=== PATIENT | female | born 1985 | race Caucasian/White ===

== ENCOUNTER 2020-08-25 17:50 | Emergency (ER) | payer OTHER ==
[~2020-08-25] VITALS: Ht 160 cm; Wt 92.5 kg
[2020-08-25] MEDS ORDERED: NAPROSYN500 MG PO (19:26)
[2020-08-25] MEDS ORDERED: METHOCARBAMOL750 M1 PO (19:26)
== END 2020-08-25 19:30 | disposition home or self-care (01) ==
LOC: ED 17:50
DX: S63.502A Unspecified sprain of left wrist, initial encounter (principal); S39.012A Strain of muscle, fascia and tendon of lower back, initial encounter; Z88.8 Allergy status to other drugs, medicaments and biological substances; V89.2XXA Person injured in unspecified motor-vehicle accident, traffic, initial encounter; Y93.89 Activity, other specified; Y92.89 Other specified places as the place of occurrence of the external cause; Y99.8 Other external cause status